=== PATIENT | male | born 1995 ===

== ENCOUNTER 2018-09-13 11:48 | Emergency (ER) | payer SELFPAY ==
[~2018-09-13] VITALS: Ht 172.7 cm; Wt 81.6 kg
[2018-09-13] MEDS ORDERED: OLANZapine 5 MG ODT (ZyPREXA ZYDIS) PO ONE ×2 (12:15→13:45)
[2018-09-13 12:25] VITALS: BP 87/63
[2018-09-13] MEDS ORDERED: NS IV 1000 ML 1,000 ML ONE (12:34)
[2018-09-13] MEDS ORDERED: LORazepam INJ 2 MG/ML (ATIVAN) VIAL ONE (12:35)
[2018-09-13 12:44] LABS: BASOPHILS % (AUTO) 0 % (0-10); EOSINOPHILS # (AUTO) 0.1 10^3/uL (0.0-0.3); EOSINOPHILS % (AUTO) 1 % (0-10); HEMATOCRIT 42 % (40-54); HEMOGLOBIN 15.2 G/DL (13.3-17.7); LYMPHOCYTES # (AUTO) 2.5 X 10^3 (1.0-4.0); LYMPHOCYTES % (AUTO) 31 % (12-44); MEAN CORPUSCULAR HEMOGLOBIN 28 PG (25-34); MEAN CORPUSCULAR HGB CONC 36 G/DL (32-36); MEAN CORPUSCULAR VOLUME 76 FL (80-99); MEAN PLATELET VOLUME 9.5 FL (7.4-10.4); MONOCYTES # (AUTO) 0.8 X 10^3 (0.0-1.0); MONOCYTES % (AUTO) 10 % (0-12); NEUTROPHILS # (AUTO) 4.6 X 10^3 (1.8-7.8); NEUTROPHILS % (AUTO) 58 % (42-75); PLATELET COUNT 355 10^3/uL (130-400); RED CELL DISTRIBUTION WIDTH 14.3 % (10.0-14.5); WHITE BLOOD COUNT 7.9 10^3/uL (4.3-11.0)
[2018-09-13] MEDS ORDERED: NS IV 1000 ML 1,000 ML IV SCH (12:45)
[2018-09-13] MEDS ORDERED: LORazepam INJ 2 MG/ML (ATIVAN) VIAL IVP PRN ×2 (12:45→13:00)
--- NOTE | 2018-09-13 12:45 | ED Psychosocial ---
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 He was speaking random subjects and a high rate of speed, writing numbers on the van. He denies any drug use or any history of anything like this. He states that he feels "perfectly fine, very focused". Timing/Duration: just prior to arrival Severity: moderate Associated Symptoms: impaired concentration Allergies and Home Medications Allergies Coded Allergies: No Known Drug Allergies (Unverified , 09/13/18) Patient Home Medication List Home Medication List Reviewed: Yes Review of Systems Constitutional: see HPI EENTM: see HPI Respiratory: no symptoms reported Cardiovascular: no symptoms reported Genitourinary: no symptoms reported Musculoskeletal: no symptoms reported Skin: no symptoms reported Psychiatric/Neurological: See HPI, Other (he denies anxiety or depression or suicidal or homicidal thoughts) Physical Exam Vital Signs - First Documented 09/13/18 12:25 Temp 96.8 Pulse 57 Resp 21 B/P (MAP) 87/63 (71) Pulse Ox 100 O2 Delivery Room Air Capillary Refill : Height, Weight, BMI Height: '" Weight: lbs. oz. kg; BMI Method: General Appearance: WD/WN, no apparent distress, other (. My conversation his conversation is rambling and talking about MMA fighting, being very focused, feeling perfectly fine, random numbers, how fast people are running.) Gastrointestinal: normal bowel sounds, non tender Extremities: normal range of motion Neurologic/Psychiatric: alert, normal mood/affect, oriented x 3 Appearance/Memory: appropriate appearance, impaired insight Behavior/Eye Contact: normal speech, increased rate of speech Thoughts/Hallucinations: delusions, flight of ideas Skin: normal color, warm/dry Is cooperative and agreeable to allowing blood draw. Upon walking from the triage room to room 8, he stated at the doorway did not want enter the room. He then became diaphoretic and nearly collapsed to the floor. He was assisted to the bed cardiac monitors attached and heart rate was 57 without ectopy, blood pressure 87/50. These symptoms past after about 2 minutes, his blood pressure increased and heart rate increased and mentation improved. Progress/Results/Core Measures Results/Orders Lab Results Laboratory Tests Test 09/13/18 12:37 Range/Units White Blood Count 7.9 4.3-11.0 10^3/uL Red Blood Count 5.50 4.35-5.85 10^6/uL Hemoglobin 15.2 13.3-17.7 G/DL Hematocrit 42 40-54 % Mean Corpuscular Volume 76 L 80-99 FL Mean Corpuscular Hemoglobin 28 25-34 PG Mean Corpuscular Hemoglobin Concent 36 32-36 G/DL Red Cell Distribution Width 14.3 10.0-14.5 % Platelet Count 355 130-400 10^3/uL Mean Platelet Volume 9.5 7.4-10.4 FL Neutrophils (%) (Auto) 58 42-75 % Lymphocytes (%) (Auto) 31 12-44 % Monocytes (%) (Auto) 10 0-12 % Eosinophils (%) (Auto) 1 0-10 % Basophils (%) (Auto) 0 0-10 % Neutrophils # (Auto) 4.6 1.8-7.8 X 10^3 Lymphocytes # (Auto) 2.5 1.0-4.0 X 10^3 Monocytes # (Auto) 0.8 0.0-1.0 X 10^3 Eosinophils # (Auto) 0.1 0.0-0.3 10^3/uL Basophils # (Auto) 0.0 0.0-0.1 10^3/uL Sodium Level 136 135-145 MMOL/L Potassium Level 3.1 L 3.6-5.0 MMOL/L Chloride Level 99 98-107 MMOL/L Carbon Dioxide Level 19 L 21-32 MMOL/L Anion Gap 18 H 5-14 MMOL/L Blood Urea Nitrogen 5 L 7-18 MG/DL Creatinine 0.87 0.60-1.30 MG/DL Estimat Glomerular Filtration Rate > 60 BUN/Creatinine Ratio 6 Glucose Level 88 70-105 MG/DL Calcium Level 9.7 8.5-10.1 MG/DL Corrected Calcium 8.5-10.1 MG/DL Total Bilirubin 0.8 0.1-1.0 MG/DL Aspartate Amino Transf (AST/SGOT) 36 H 5-34 U/L Alanine Aminotransferase (ALT/SGPT) 32 0-55 U/L Alkaline Phosphatase 65 40-136 U/L Troponin I < 0.30 <0.30 NG/ML Total Protein 7.9 6.4-8.2 GM/DL Albumin 4.6 H 3.2-4.5 GM/DL Thyroid Stimulating Hormone (TSH) 0.09 L 0.35-4.94 UIU/ML Free Thyroxine 1.45 0.70-1.48 NG/DL Salicylates Level < 5.0 L 5.0-20.0 MG/DL Acetaminophen Level < 10 L 10-30 UG/ML Serum Alcohol < 10 <10 MG/DL My Orders Orders - CORBY MARSHALL SANITATION DIRECTOR Cbc With Automated Diff (09/13/18 11:59) Comprehensive Metabolic Panel (09/13/18 11:59) Thyroid Stimulating Hormone (09/13/18 11:59) Drug Screen Stat (Urine) (09/13/18 11:59) Salicylate (09/13/18 11:59) Acetaminophen (09/13/18 11:59) Alcohol (09/13/18 11:59) Olanzapine Orally Dissolve Tab (Zyprexa (09/13/18 12:15) Ns Iv 1000 Ml (Sodium Chloride 0.9%) (09/13/18 12:45) Lorazepam Injection (Ativan Injection) (09/13/18 12:45) Troponin I (09/13/18 12:49) Lorazepam Injection (Ativan Injection) (09/13/18 13:00) Potassium Chloride (Tablet) (K Dur Table (09/13/18 13:15) Free T4 (Free Thyroxine) (09/13/18 13:37) Olanzapine Orally Dissolve Tab (Zyprexa (09/13/18 13:45) Olanzapine Orally Dissolve Tab (Zyprexa (09/13/18 15:15) Medications Given in ED Current Medications Medications Dose Ordered Sig/Tal Route Start Time Stop Time Status Last Admin Dose Admin Lorazepam 2 mg ONCE PRN IVP 09/13/18 13:00 09/13/18 12:38 2 MG Olanzapine 10 mg ONCE ONCE PO 09/13/18 15:15 09/13/18 15:16 DC 09/13/18 13:45 10 MG Vital Signs/I&O 09/13/18 12:25 Temp 96.8 Pulse 57 Resp 21 B/P (MAP) 87/63 (71) Pulse Ox 100 O2 Delivery Room Air Departure Communication (Admissions) 1300-BP increased to 124/85. 1350- after 2 mg of Ativan, patient is up walking around states that he is feeling better. He states [place] where [place] has to work. He states that he wants to sign out. He continues to deny any homicidal or suicidal thoughts. He was just given Zyprexa 5 mg sublingual. he states that he must leave now. Impression Primary Impression: Tania Disposition: 01 HOME, SELF-CARE Condition: Stable Departure-Patient Inst. Referrals: NO,LOCAL PHYSICIAN (PCP/Family) Primary Care Physician CORBY MARSHALL APRN Sep 13, 2018 12:45
[2018-09-13 13:11] LABS: ALANINE AMINOTRANSFERASE 32 U/L (0-55); ALBUMIN 4.6 GM/DL (3.2-4.5); ALKALINE PHOSPHATASE 65 U/L (40-136); BILIRUBIN,TOTAL 0.8 MG/DL (0.1-1.0); BUN/CREATININE RATIO 6; CALCIUM 9.7 MG/DL (8.5-10.1); CARBON DIOXIDE 19 MMOL/L (21-32); CHLORIDE 99 MMOL/L (98-107); CREATININE SERUM 0.87 MG/DL (0.60-1.30); GFR ESTIMATED > 60; GLUCOSE 88 MG/DL (70-105); POTASSIUM 3.1 MMOL/L (3.6-5.0); SALICYLATE < 5.0 MG/DL (5.0-20.0); SODIUM 136 MMOL/L (135-145); TOTAL PROTEIN 7.9 GM/DL (6.4-8.2)
[2018-09-13] MEDS ORDERED: KCL 20 MEQ TAB (K-DUR) PO ONE (13:15)
[2018-09-13 13:16] LABS: ACETAMINOPHEN < 10 UG/ML (10-30)
[2018-09-13] MEDS: OLANZapine 5 MG ODT (ZyPREXA ZYDIS) PO ONE ×2 (13:45→13:50)
== END 2018-09-13 13:58 | disposition home or self-care (01) ==
LOC: ER 11:49
DX: F30.9 Manic episode, unspecified (principal)
CPT/HCPCS: 36415; 80053; 80320; 80329; 84439; 84443; 84484; 85025

== ENCOUNTER 2018-09-14 17:21 | Emergency (ER) | payer SELFPAY ==
[~2018-09-14] VITALS: Ht 172.7 cm; Wt 105.2 kg
[2018-09-14 17:31] VITALS: BP 156/108
[2018-09-14 17:53] LABS: BILIRUBIN,URINE NEGATIVE (NEGATIVE); CLARITY,URINE CLEAR; COLOR,URINE YELLOW; GLUCOSE, URINE (UA) NEGATIVE (NEGATIVE); KETONES,URINE NEGATIVE (NEGATIVE); LEUKOCYTE ESTERASE ,URINE NEGATIVE (NEGATIVE); NITRITE,URINE NEGATIVE (NEGATIVE); PH,URINE 7 (5-9); PROTEIN,URINE NEGATIVE (NEGATIVE); UROBILINOGEN,URINE NORMAL (NORMAL)
[2018-09-14 17:59] LABS: SQUAMOUS EPITHELIAL CELL,UR RARE /HPF
[2018-09-14 18:07] LABS: AMPHETAMINE SCREEN, URINE NEGATIVE (NEGATIVE); BARBITURATE SCREEN URINE NEGATIVE (NEGATIVE); BENZODIAZEPINES SCREEN URINE NEGATIVE (NEGATIVE); CANNABINOID SCREEN, URINE POSITIVE (NEGATIVE); COCAINE SCREEN URINE NEGATIVE (NEGATIVE); METHADONE STAT NEGATIVE (NEGATIVE); METHAMPHETAMINE SCREEN URINE S NEGATIVE (NEGATIVE); OPIATE SCREEN URINE NEGATIVE (NEGATIVE); OXYCODONE STAT NEGATIVE (NEGATIVE); PROPOXYPHENE STAT NEGATIVE (NEGATIVE); TRICYCLIC ANTIDEPRESSANTS SCRE NEGATIVE (NEGATIVE)
--- NOTE | 2018-09-15 01:40 | ED General ---
General Chief Complaint: Psych/Social Disorder Stated Complaint: UNABLE TO FOCUS, ANXIETY Nursing Triage Note: pt presents to ed with complaints of inability to focus, anxiety, and "edgyness". Pt also reports he currently has no place to live and has been staying with friends. Nursing Sepsis Screen: No Definite Risk Source of Information: Patient (SPEECH SOMEWHAT ERRATIC, AND A LITTLE DIFFICULT TO FOLLOW AT TIMES, BUT ALSO HAS [place] ACCENT), Old Records ( ALL PMH IS FROM OLD CHART) History of Present Illness Date Seen by Provider: Sep 14, 2018 Time Seen by Provider: 17:45 Initial Comments PT ARRIVES VIA POV BY HIMSELF ON ASKING PT WHY HE IS HERE, HE STATES HE WAS HAVING ANXIETY, "ON EDGE" AND UNABLE TO FOCUS, "BUT NOTHING NOW, I'M JUST TIRED" THEN STATES "I NEEDED TO TAKE A REST SOMEWHERE" STATES " I NEEDED SOME MENTAL HEALTH" " THERE'S NO SPECIFIC PROBLEM" "I NEED TO [facility] AN [facility]" "I WILL CALL THEM TOMORROW"--WHEN ASKED WHAT PROBLEMS HE WAS HAVING THAT HE NEEDED MENTAL HEALTH, HE STATES "NOTHING NOW, THERE'S NO SPECIFIC PROBLEM" THEN STATES "I HAVE NO PLACE TO GO, CAN I JUST STAY HERE? " WHEN ASKED WHERE HE HAS BEEN STAYING, HE STATES "HE IS NOT SURE", WHEN ASKED WHERE HE STAYED LAST NIGHT, HE STATES "AT [place] [facility]) BUT BEFORE THAT I'M NOT SURE" THEN STATES " I JUST NEED A BREAK" AND STATES "I JUST WANT TO GO BACK HOME TO [facility]" "I DON'T HAVE MY PASSPORT" THEN STATES HE JUST NEEDS TO CALL HIS FRIEND WHEN ASKED WHAT HE HAS BEEN DOING ALL DAY TODAY HE STATES "DOING MY OPT" STATES HE "APPLIED FOR MY OPT" --PT UNABLE TO ELABORATE PT DENIES ANY SUICIDAL OR HOMICICAL THOUGHTS OR ATTEMPTS PT WAS SEEN HERE YESTERDAY --WAS HAVING SOME BIZARRE BEHAVIOR, TALKING ABOUT RANDOM SUBJECTS AT A HIGH RATE OF SPEED, WRITING NUMBERS ON A WALL. HE REPORTED AT THAT TIME HE WAS STAYING [facility] [place] PT WOULD NOT ALLOW BLOOD DRAW AND LEFT AMA. HE WAS NOT HAVING SUICIDAL OR HOMICIDAL THOUGHTS AT THAT TIME. 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 [facility] Allergies and Home Medications Allergies Coded Allergies: No Known Drug Allergies (Unverified , 09/13/18) Home Medications No Active Prescriptions or Reported Meds Patient Home Medication List Home Medication List Reviewed: Yes Review of Systems Review of Systems Constitutional: other (UNABLE TO OBTAIN FROM PT) Psychiatric/Neurological: See HPI Past [id number]-Stqltw Hx Patient Social History Alcohol Use: Rarely Uses Recreational Drug Use: Yes Drug of Choice: marijuana Smoking Status: Current Everyday Smoker Type Used: Cigarettes 2nd Hand Smoke Exposure: Yes Recent Foreign Travel: No Contact w/Someone Who Travel: No Recent Infectious Disease Expo: No Recent Hopitalizations: No Seasonal Allergies Seasonal Allergies: No Past Medical History Surgeries: Yes Tonsillectomy Respiratory: No Cardiac: No Neurological: No Genitourinary: No Gastrointestinal: No Musculoskeletal: No Endocrine: No HEENT: No Cancer: No Psychosocial: No Integumentary: No Blood Disorders: No Physical Exam Vital Signs Vital Signs - First Documented 09/14/18 17:31 Temp 98.2 Pulse 119 Resp 16 B/P (MAP) 156/108 (124) Pulse Ox 98 Capillary Refill : Less Than 3 Seconds Height, Weight, BMI Height: 5'8.00" Weight: 232lbs. oz. 105.693475uh; BMI Method:Stated General Appearance: No Apparent Distress, WD/WN, Anxious (MILDLY) Respiratory: Normal Breath Sounds Cardiovascular: Regular Rate, Rhythm Neurologic/Psychiatric: Alert, No Motor/Sensory Deficits (GROSSLY INTACT-- WALKS WITHOUT DIFFICULTY), Other (SOMEWHAT ANXIOUS, SPEECH SLIGHTLY FAST AND SOMEWHAT ERRATIC. PT IS ABLE TO COMPLETE SENTENCES, BUT HAS FLIGHT OF IDEAS, AND HAS SOME LIMITED MEMORY OF RECENT EVENTS. NO SUICIDAL OR HOMICIAL THREATS. NO APPARENT HALLUCINATIONS. ) Progress/Results/Core Measures Suspected Sepsis Recent Fever Within 48 Hours: No Infection Criteria Present: None New/Unexplained Altered Menta: No Sepsis Screen: No Definite Risk SIRS Temperature:98.2 Pulse: 119 Respiratory Rate: 16 Blood Pressure 156 /108 Mean: 124 Results/Orders Lab Results Laboratory Tests Test 09/14/18 17:46 Range/Units Urine Color YELLOW Urine Clarity CLEAR Urine pH 7 5-9 Urine Specific [place] 1.010 L 1.016-1.022 Urine Protein NEGATIVE NEGATIVE Urine Glucose (UA) NEGATIVE NEGATIVE Urine Ketones NEGATIVE NEGATIVE Urine Nitrite NEGATIVE NEGATIVE Urine Bilirubin NEGATIVE NEGATIVE Urine Urobilinogen NORMAL NORMAL MG/DL Urine Leukocyte Esterase NEGATIVE NEGATIVE Urine RBC (Auto) NEGATIVE NEGATIVE Urine RBC NONE /HPF Urine WBC NONE /HPF Urine Squamous Epithelial Cells RARE /HPF Urine Crystals NONE /LPF Urine Bacteria NONE /HPF Urine Casts NONE /LPF Urine Mucus NEGATIVE /LPF Urine Culture Indicated NO Urine Opiates Screen NEGATIVE NEGATIVE Urine Oxycodone Screen NEGATIVE NEGATIVE Urine Methadone Screen NEGATIVE NEGATIVE Urine Propoxyphene Screen NEGATIVE NEGATIVE Urine Barbiturates Screen NEGATIVE NEGATIVE Ur Tricyclic Antidepressants Screen NEGATIVE NEGATIVE Urine Phencyclidine Screen NEGATIVE NEGATIVE Urine Amphetamines Screen NEGATIVE NEGATIVE Urine Methamphetamines Screen NEGATIVE NEGATIVE Urine Benzodiazepines Screen NEGATIVE NEGATIVE Urine Cocaine Screen NEGATIVE NEGATIVE Urine Cannabinoids Screen POSITIVE H NEGATIVE My Orders Orders - TRACIE CHAO DO Ua Culture If Indicated (09/14/18 17:47) Drug Screen Stat (Urine) (09/14/18 17:47) Ekg Tracing (09/14/18 17:47) Vital Signs/I&O 09/14/18 17:31 Temp 98.2 Pulse 119 Resp 16 B/P (MAP) 156/108 (124) Pulse Ox 98 Capillary Refill : Less Than 3 Seconds Blood Pressure Mean: 124 Progress Note : Progress Note 1805--PT IS SIGNING OUT AMA, STATES HE HAS CALLED A FRIEND. Departure Impression Primary Impression: Manic behavior Disposition: 07 AGAINST MEDICAL ADVICE Condition: Improved Departure-Patient Inst. Referrals: NO,LOCAL PHYSICIAN (PCP) Primary Care Physician Scripts No Active Prescriptions or Reported Meds TRACIE CHAO DO Sep 15, 2018 01:40
== END 2018-09-14 18:05 | disposition left against medical advice (07) ==
LOC: EDUNIT# 17:21 → ER 17:23
DX: F30.9 Manic episode, unspecified (principal); F12.10 Cannabis abuse, uncomplicated; F17.210 Nicotine dependence, cigarettes, uncomplicated; Z90.89 Acquired absence of other organs
CPT/HCPCS: 80306; 81000; 99282